=== PATIENT | female | born 1985 | race Caucasian/White ===

== ENCOUNTER 2018-06-18 06:54 | Outpatient (CLI) | payer BC ==
--- NOTE | 2018-06-18 08:19 | ULT ---
ULTRASOUND ABDOMEN: Date: 06/18/18 HISTORY: Abdominal pain. FINDINGS: Liver, spleen, gallbladder, pancreas, kidneys, and visualized portions of the aorta and IVC appear no rmal. The common duct measures 3.0 mm in diameter. No free fluid is seen. IMPRESSION: Normal exam. POS: [facility]
== END 2018-06-18 06:55 | disposition home or self-care (01) ==
LOC: SCSULT 06:54
PROVIDERS: ATTEND Family Medicine
DX: R10.9 Unspecified abdominal pain (principal)
CPT/HCPCS: 76700

== ENCOUNTER 2018-06-21 11:37 | Outpatient (CLI) | payer BC ==
[2018-06-21 12:48] LABS: #Eosinphils 0.1 thou/uL (0.0-0.7); #Lymphocytes 1.4 thou/uL (1.20-3.40); #Monocytes 0.3 thou/uL (0.11-0.59); #Neutrophils 3.5 thou/uL (1.40-6.50); %Basophils 0.9 % (0.0-1.0); %Eosinophils 2.7 % (0.0-10.0); %Neutrophils 64.5 % (42.0-75.0); Hemoglobin 12.6 g/dL (12.0-16.0); Mean Corpuscular Hemoglobin 28.7 pg (27.0-31.0); Mean Corpuscular Volume 84.2 fL (78.0-98.0); Mean Platelet Volume 9.8 fL (7.4-10.4); Platelet Count 223 thou/uL (130-400); Red Blood Cell (RBC) Count 4.39 mill/uL (4.20-5.40); White Blood Cell (WBC) Count 5.4 thou/uL (4.8-10.8)
[2018-06-21 12:52] LABS: ALT (SGPT) 16 U/L (8-55); AST (SGOT) 15 U/L (5-34); Alkaline Phosphatase 52 U/L (40-150); Anion Gap 10 mmol/L (10-20); BUN (Urea Nitrogen) 10 mg/dL (7.0-18.7); Bilirubin, Total 0.8 mg/dL (0.2-1.2); CRP (Inflammatory) Less than 0.50 mg/dL (= or < 0.5); Calc. Creatinine Clearance 0 mL/min (70-130); Calcium 8.8 mg/dL (7.8-10.44); Carbon Dioxide 22 mmol/L (22-29); Chloride 111 mmol/L (98-107); Estimated GFR-MDRD 88; Globulin 2.5 g/dL (2.4-3.5); Glucose 94 mg/dL (70-105); Potassium 3.8 mmol/L (3.5-5.1); Protein, Total 6.5 g/dL (6.0-8.3); Sodium 139 mmol/L (136-145)
[2018-06-21 13:12] LABS: Free T4 (Free Thyroxine) 1.28 ng/dL (0.70-1.48); Thyroid Stimulating Hormone 0.0064 uIU/mL (0.35-4.94)
--- NOTE | 2018-06-21 13:32 | RAD ---
PA AND LATERAL CHEST: Indication: Cough and congestion for one week. Comparison: 07-28-12 FINDINGS: Lungs are clear. Cardiomediastinal silhouette is within normal limits. No acute osseous abnormality i s evident. Thoracolumbar scoliosis and spinal instrumentation appear similar. IMPRESSION: No acute cardiopulmonary abnormality. POS: [facility]
[2018-06-22 09:20] LABS: EBV Early Antigen (EA) IgG AB <9.0 U/mL (0.0-8.9); EBV VCA IgM <36.0 U/mL (0.0-35.9)
[2018-06-23 12:11] LABS: ANA Symphony (Qualitative) Negative (Negative); CCP IgG Antibody 0.8 EliAU/mL (<7 Negative); EliA RAS New Method **** NEW METHOD ****; Rheumatoid Factor IgA Antibody 2.4 IU/mL (<14 Negative); Rheumatoid Factor IgM Antibody 0.6 IU/mL (<3.5 Negative); dsDNA IgG Antibody 2.3 IU/mL (<10 Negative)
[2018-06-23 16:15] LABS: Cytoplasmic (C-ANCA) <1:20 titer (Neg:<1:20); Myeloperoxidase AutoAbs <9.0 U/mL (0.0-9.0); Perinuclear (P-ANCA) <1:20 titer (Neg:<1:20); Proteinase-3 AutoAbs Less than 3.5 U/mL (0.0-3.5)
== END 2018-06-21 11:38 | disposition home or self-care (01) ==
LOC: SCSRAD 11:37
PROVIDERS: ATTEND Family Medicine
DX: R07.9 Chest pain, unspecified (principal); B27.90 Infectious mononucleosis, unspecified without complication; E03.9 Hypothyroidism, unspecified; R06.00 Dyspnea, unspecified; M25.50 Pain in unspecified joint
CPT/HCPCS: 36415; 71046; 80053; 83520; 84439; 84443; 84481; 85025; 85379; 85652; 86038; 86140; 86200; 86225; 86256; 86663; 86664; 86665

== ENCOUNTER 2018-06-22 11:44 | Outpatient (CLI) | payer BC ==
--- NOTE | 2018-06-22 13:47 | CT ---
CT THORAX UTILIZING IV CONTRAST WITH 3D PROTOCOL AND 3D REFORMATTED IMAGING: INDICATIONS: Shortness of breath. Chest pain. Elevated D-dimer. History of spinal fusion. FINDINGS: There is some mild pleural parenchymal scarring involving both lung apices. No suspicious consolidat ion, pleural effusion, or pneumothorax is evident. No central or segmental pulmonary embolus is jules sly evident. No enlarged lymph nodes are evident. A small residual amount of thymic tissue is seen within the anterior mediastinum. The visualized upper abdomen is slightly limited due to beam scatter artifact from the patient's spin al instrumentation. No definite acute abnormality is evident within the upper abdomen. No definite acute osseous abnormality is evident. There is mild thoracolumbar scoliosis. There is p osterior spine instrumentation spanning T11 through the visualized L2 vertebral segments. IMPRESSION: 1. No central or segmental pulmonary embolus. 2. No definite acute cardiopulmonary abnormality. 3. Thoracolumbar spine instrumentation, partially visualized on the current CT evaluation. POS: [facility]
== END 2018-06-22 11:45 | disposition home or self-care (01) ==
LOC: CT 11:44
PROVIDERS: ATTEND Family Medicine
DX: Z03.89 Encounter for observation for other suspected diseases and conditions ruled out (principal); Z98.890 Other specified postprocedural states
CPT/HCPCS: 71275

== ENCOUNTER 2020-08-27 15:47 | Outpatient (CLI) | payer BC ==
--- NOTE | 2020-08-27 16:26 | RAD ---
CHEST TWO VIEWS: History: Chronic cough Comparison: 06-21-18 FINDINGS: Lungs are clear. No pneumothorax. No effusion. Cardiac silhouette and mediastinal contours are within normal limits. Thoracolumbar fusion hardware is similar. No acute osseous abnormality. IMPRESSION: No acute intrathoracic abnormality. POS: [facility]
== END 2020-08-27 15:48 | disposition home or self-care (01) ==
LOC: SCSRAD 15:47
PROVIDERS: ATTEND Family Medicine
DX: R05 Cough (principal)
CPT/HCPCS: 71046

== ENCOUNTER 2020-12-31 08:14 | Outpatient (CLI) | payer BC | END 2020-12-31 08:15 | disposition home or self-care (01) | LOC: CTENTCT 08:14 | PROVIDERS: ATTEND Student in an Organized Health Care Education/Training Program | DX: J32.9 Chronic sinusitis, unspecified (principal) | CPT/HCPCS: 70486 ==

== ENCOUNTER 2023-09-14 13:47 | Outpatient (CLI) | payer BC | END 2023-09-14 13:48 | disposition home or self-care (01) | LOC: BICRAD 13:47 | PROVIDERS: ATTEND Family Medicine | DX: R05.9 Cough, unspecified (principal) | CPT/HCPCS: 71046 ==